=== PATIENT | male | born 1985 | race Caucasian/White ===

== ENCOUNTER 2020-09-13 13:33 | Emergency (ER) | payer OTHER, SELFPAY ==
[~2020-09-13] VITALS: Ht 177.8 cm; Wt 112.5 kg
[2020-09-13 14:16] VITALS: Ht 177.8 cm; Wt 112.5 kg
[2020-09-13 15:09] VITALS: BP 139/87
== END 2020-09-13 15:09 | disposition home or self-care (01) ==
LOC: ED 13:33
DX: U07.1 COVID-19 (principal)

== ENCOUNTER 2020-09-18 21:18 | Emergency (ER) | payer OTHER ==
[~2020-09-18] VITALS: Ht 177.8 cm; Wt 114.5 kg
[2020-09-18 21:36] VITALS: BP 129/76; Ht 177.8 cm; Wt 114.5 kg
[2020-09-18 23:48] LABS: BASOPHIL % 0.3 % (0-2); PLATELET COUNT 353 x10^3mcL (130-400); RED CELL DISTRIBUTION WIDTH 13.1 % (11.5-14.5)
[2020-09-19 00:01] LABS: CALCIUM 9.2 mg/dL (8.5-10.1); CARBON DIOXIDE 28.8 mmol/L (21-32); CHLORIDE SERUM 105 mmol/L (98-107); GFR1 > 60 mL/min; GLUCOSE SERUM 134 mg/dL (74-106); POTASSIUM SERUM 4.2 mmol/L (3.5-5.1); SODIUM SERUM 140 mmol/L (136-145)
[2020-09-19 00:06] LABS: ALBUMIN 3.8 g/dL (3.4-5.0); ALKALINE PHOSPHATASE 133 U/L (46-116); ALT/SGPT 123 U/L (16-63); AST/SGOT 51 U/L (15-37); BILIRUBIN TOTAL 0.5 mg/dL (0.20-1.00); LIPASE 83 IU/L (73-393)
== END 2020-09-19 01:34 | disposition home or self-care (01) ==
LOC: ED 21:18
DX: R42 Dizziness and giddiness (principal); R11.0 Nausea; R20.2 Paresthesia of skin
CPT/HCPCS: J2765; J7030; J8597

== ENCOUNTER 2020-09-26 20:38 | Emergency (ER) | payer OTHER ==
[~2020-09-26] VITALS: Ht 177.8 cm; Wt 116.1 kg
[2020-09-26 20:46] VITALS: Ht 177.8 cm; Wt 116.1 kg
[2020-09-26 22:24] VITALS: BP 145/95
== END 2020-09-26 22:24 | disposition home or self-care (01) ==
LOC: ED 20:38
DX: T78.40XA Allergy, unspecified, initial encounter (principal); L29.9 Pruritus, unspecified; X58.XXXA Exposure to other specified factors, initial encounter
CPT/HCPCS: J2930